=== PATIENT | male | born 1985 ===

== ENCOUNTER 2016-10-19 23:44 | Emergency (ER) | payer SELFPAY ==
[2016-10-20 00:12] VITALS: BP 133/75; PULSE 61; RESP 18; TEMP 98.4; O2SAT 99
--- NOTE | 2016-10-20 00:21 | C.PDOC ---
History Of Present Illness Patient c/o right lower toothache for 3 days. Patient denies any fever/facial swelling. Time Seen by Provider: 10/20/16 00:17 Chief Complaint (Nursing): Dental Pain History Per: Patient History/Exam Limitations: no limitations Onset/Duration Of Symptoms: Days (3) Current Symptoms Are (Timing): Still Present Past Medical History Reviewed: Historical Data, Nursing Documentation, Vital Signs Vital Signs: Last Vital Signs Temp 98.4 F 10/20/16 00:08 Pulse 61 10/20/16 00:08 Resp 18 10/20/16 00:08 BP 133/75 10/20/16 00:08 Pulse Ox 99 10/20/16 00:24 - Medical History PMH: No Chronic Diseases Surgical History: No Surg Hx Family History: States: No Known Family Hx - Social History Hx Alcohol Use: Yes Hx Substance Use: No - Immunization History Hx Tetanus Toxoid Vaccination: No Hx Influenza Vaccination: No Hx Pneumococcal Vaccination: No Review Of Systems Except As Marked, All Systems Reviewed And Found Negative. ENT: Positive for: Other (toothache) Physical Exam - Physical Exam Appears: Well, Non-toxic, No Acute Distress Skin: Normal Color, Warm, No Rash Eye(s): bilateral: Normal Inspection Ear(s): Bilateral: Normal Nose: Normal, No Discharge Tongue: Normal Appearing, No Swelling, No Lesions Lips: No Swelling Teeth: Other (right lower 1st molar covered by cup, tender to percussion, no gum /face swelling) Throat: No Erythema ED Course And Treatment O2 Sat by Pulse Oximetry: 99 Progress Note: Patient was treated with PenVK and Percocet with improvement. Patient was d/c home with Dentist follow up. Disposition - Disposition Referrals: Non [facility] Provider, [Primary Care Provider] - [facility] [Outside] Disposition: HOME/ ROUTINE Disposition Time: 00:21 Condition: STABLE Additional Instructions: Follow up with your Dentist within 1-2 days. Return to ED if feel worse. Prescriptions: Ibuprofen [Motrin Tab] 600 mg PO Q8 #30 tab Penicillin VK [Penicillin VK Tab] 500 mg PO Q6H #40 tab traMADol [Ultram] 50 mg PO Q6 #30 tab Instructions: Toothache (ED) Forms: [employer] (Yakut)[place], [place] [facility] - Clinical Impression Clinical Impression: Toothache
[2016-10-20] MEDS ORDERED: Oxycodone/Acetaminophen 5/325 mg Tab PO STA (00:24)
[2016-10-20] MEDS ORDERED: Oxycodone/Acetaminophen 5/325 mg Tab ONE (00:27)
== END 2016-10-20 00:43 | disposition home or self-care (01) ==
LOC: SUPCPDRO 23:44 → C.ER 23:44
DX: K08.89 Other specified disorders of teeth and supporting structures (principal)

== ENCOUNTER 2018-05-16 15:17 | Emergency (ER) | payer SELFPAY ==
[2018-05-16 15:23] VITALS: BMI 25.7
[2018-05-16] MEDS ORDERED: Alum-Mag Hydrox-Simethicone Susp (30 mL) PO STA (16:53)
--- NOTE | 2018-05-16 17:00 | C.PDOC ---
History Of Present Illness 33 year old male presents to the emergency department with complaints of pain and tenderness to his anterior chest wall. 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 Patient also complains of pain upon taking deep breath, he denies fall or trauma. Time Seen by Provider: 05/16/18 16:27 Chief Complaint (Nursing): Abdominal Pain History Per: Patient History/Exam Limitations: no limitations Onset/Duration Of Symptoms: Hrs Location Of Pain/Discomfort: Other (left anterior chest wall) Quality Of Discomfort: "Pain" Associated Symptoms: Chest Pain. denies: Fever, Chills, Nausea, Vomiting Exacerbating Factors: Deep Breaths Past Medical History Reviewed: Historical Data, Nursing Documentation, Vital Signs Vital Signs: Last Vital Signs Temp 98.3 F 05/16/18 15:23 Pulse 100 H 05/16/18 15:23 Resp 18 05/16/18 15:23 BP 147/92 H 05/16/18 15:23 Pulse Ox 100 05/16/18 15:23 - Medical History PMH: Gastritis Surgical History: No Surg Hx Family History: States: No Known Family Hx - Social History Hx Alcohol Use: Yes Hx Substance Use: No - Immunization History Hx Tetanus Toxoid Vaccination: No Hx Influenza Vaccination: No Hx Pneumococcal Vaccination: No Review Of Systems Except As Marked, All Systems Reviewed And Found Negative. Constitutional: Negative for: Fever, Chills ENT: Negative for: Ear Pain Cardiovascular: Positive for: Chest Pain Respiratory: Negative for: Cough, Shortness of Breath Gastrointestinal: Negative for: Nausea, Vomiting, Abdominal Pain, Diarrhea Physical Exam - Physical Exam Appears: Non-toxic, No Acute Distress Skin: Normal Color, Warm, Dry Head: Atraumatic, Normacephalic Eye(s): bilateral: Normal Inspection, PERRL, EOMI Nose: Normal Oral Mucosa: Moist Neck: Normal, Supple Chest: Symmetrical, Tenderness (digitally reproducible chest pain bilaterally to the lower parasternal area) Cardiovascular: Rhythm Regular, No Murmur Respiratory: Normal Breath Sounds, No Rales, No Rhonchi, No Wheezing Gastrointestinal/Abdominal: Soft, No Tenderness, No Guarding Back: Normal Inspection, No CVA Tenderness, No Vertebral Tenderness Extremity: Normal ROM Neurological/Psych: Oriented x3, Normal Speech, Normal Cognition ED Course And Treatment O2 Sat by Pulse Oximetry: 100 (RA) Pulse Ox Interpretation: Normal Medical Decision Making Medical Decision Making: 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 clear lungs normal VS ? h/o gastritis maalox/NSAIDS given non-drinker, low susp of pancreatitis offered and declined labs/CT Plan: EKG Maalox 30ml PO Motrin 600mg PO Disposition Doctor Will See Patient In The: Office Counseled Patient/Family Regarding: Studies Performed, Diagnosis - Disposition Referrals: [facility] [Outside] [employer] [facility] [place] [Outside] [facility] [Outside] [facility] [Outside] Disposition: HOME/ ROUTINE Disposition Time: 17:00 Condition: GOOD Additional Instructions: ice packs to the area 1/2 hour per hour, nothing hot ibuprofen/advil 400-600 mg every 6 hours as needed for pain. no heavy lifting for 1 week Return to ED for re-eval labs/CT as needed. gastritis: pepcid 20 mg every 12 hours- lowers stomach acid Maalox 30 cc (one tablespoon) 5x/day as needed for symptoms GERD diet outpatient follow-up in our outpatient [facility] as needed. Instructions: Gastritis, Costochondritis Forms: [employer] (Lithuanian), Work Excuse - Clinical Impression Clinical Impression: Chest wall discomfort - Scribe Statement The provider has reviewed the documentation as recorded by the Scribe (Sky Parker) Provider Attestation: All medical record entries made by the Scribe were at my direction and personally dictated by me. I have reviewed the chart and agree that the record accurately reflects my personal performance of the history, physical exam, medical decision making, and the department course for this patient. I have also personally directed, reviewed, and agree with the discharge instructions and disposition.
[2018-05-16] MEDS ORDERED: Aluminum Hydroxide/Magnesium Hydroxide Susp (30 mL) ONE (17:09)
[2018-05-16 17:24] VITALS: BP 117/62; PULSE 71; RESP 16; TEMP 97.6
[2018-05-16 19:30] VITALS: O2SAT 100
--- NOTE | 2018-05-18 22:47 | CARD ---
APPROVED REPORT Date of service: 05/16/2018 EKG Measurement Heart [id number] <Conclusion> Normal sinus rhythm Normal ECG
== END 2018-05-16 17:22 | disposition home or self-care (01) ==
LOC: C.ER 15:17
DX: R07.89 Other chest pain (principal)